=== PATIENT | female | born 1945 | race Caucasian/White ===

== ENCOUNTER → 2016-10-17 | Outpatient (CLI) | payer OTHER, MEDICARE ==
[~2016-10-17] MED LIST: CETI10TA84 PO; CLC100 PO; CYM/30 PO; DICL1GEL28 TOP; HYDR-5688 PO; MULT-884 PO; NXM/40 PO; PRM625 PO
== END | disposition home or self-care (01) ==
LOC: C.LAB 15:10
PROVIDERS: ATTEND Family Medicine
DX: Z00.00 Encounter for general adult medical examination without abnormal findings (principal); Z11.59 Encounter for screening for other viral diseases; Z13.220 Encounter for screening for lipoid disorders

== ENCOUNTER → 2016-10-17 | Outpatient (CLI) | payer OTHER, MEDICARE ==
--- NOTE | 2016-10-20 12:36 | MAMMOGRAPHY REPORT ---
BILATERAL DIGITAL SCREENING MAMMOGRAM WITH CAD: 10/17/2016 CLINICAL HISTORY: Routine screening. TECHNIQUE: Current study was also evaluated with a Computer Aided Detection (CAD) system. Bilateral CC and MLO views were obtained. COMPARISON: Comparison is made to exams dated: 09/06/2014 mammogram, 08/27/2013 mammogram - [facility], 08/12/2012 mammogram - [facility], 01/03/2008, and 12/30/2006. BREAST COMPOSITION: There are scattered areas of fibroglandular density in both breasts. FINDINGS: There is a new possible 6 mm mass in the right central breast, for which spot compression tomosynthesis views and possible breast ultrasound are recommended for further evaluation. This may represent a cyst. The remainder of both breasts are stable compared to prior exams, without suspicious masses, calcific ations, or areas of architectural distortion noted. A linear scar marker denotes a scar on the right anterior breast. Small circumscribed benign-appearing mass in the left medial breast is stable. As ymmetry within the left medial breast middle depth on the cc view is also stable. Circular markers m ark bilateral moles. IMPRESSION: ACR BI-RADS CATEGORY 0: INCOMPLETE EVALUATION: NEED ADDITIONAL IMAGING EVALUATION Possible right breast mass, for which additional imaging evaluation is recommended. The patient will be called to schedule an appointment. Approximately 10% of breast cancers are not detected with mammography. A negative mammographic report should not delay biopsy if a clinically suggestive mass is present. Donna Jaime M.D. /:10/17/2016 16:25:52 Metallography Teacher: Janey MENG(R)(M), [facility] letter sent: Addl Imaging 0 BI-RADS Code: ACR BI-RADS Category 0: Incomplete Evaluation: Need Additional Imaging Evaluation
== END | disposition home or self-care (01) ==
LOC: C.MAMM 14:01
PROVIDERS: ATTEND Family Medicine
DX: Z12.31 Encounter for screening mammogram for malignant neoplasm of breast (principal); Z00.00 Encounter for general adult medical examination without abnormal findings; Z11.59 Encounter for screening for other viral diseases; Z13.220 Encounter for screening for lipoid disorders

== ENCOUNTER → 2016-10-29 | Outpatient (CLI) | payer OTHER, MEDICARE ==
--- NOTE | 2016-10-29 15:37 | MAMMOGRAPHY REPORT ---
UNILATERAL RIGHT DIGITAL DIAGNOSTIC MAMMOGRAM TOMOSYNTHESIS AND TARGETED RIGHT ULTRASOUND: 10/29/2016 CLINICAL HISTORY: Callback from screening mammogram for right breast mass. The patient has a strong family history of breast cancer including her mother, sister, and other family members. TECHNIQUE: Breast tomosynthesis in addition to standard 2D mammography was performed. Spot compress ion right CC and MLO 2-D and tomosynthesis images were obtained. COMPARISON: Comparison is made to exams dated: 10/17/2016 mammogram - [facility], mammogram, 08/27/2013 mammogram - [facility], 08/12/2012 mammogram - [facility], 01/03/2008, and 12/30/2006. BREAST COMPOSITION: There are scattered areas of fibroglandular density in the right breast. FINDINGS: Spot compression views demonstrate an oval partially circumscribed and partially obscured 6 mm mass in the right central breast, as well as an adjacent oval circumscribed 3 mm mass best seen on the MLO view. A linear scar marker denotes a scar on the right breast. Targeted ultrasound was performed of the right central breast in the region of the mammographic jina s. In the right subareolar breast, there is an oval circumscribed anechoic mass with a thin internal septation, measuring 3 x 4 mm. An adjacent smaller oval anechoic circumscribed mass measuring 3 x 2 mm is seen. These correspond with the mammographic masses and are consistent with benign cysts. Al so noted is adjacent mild benign duct ectasia. IMPRESSION: ACR BI-RADS CATEGORY 2: BENIGN, TARGETED ULTRASOUND ACR BI-RADS CATEGORY 2: BENIGN Two adjacent benign cysts in the right subareolar breast on ultrasound, which correspond with the asia mographic masses. There is no mammographic or targeted sonographic evidence of malignancy. A 1 year screening mammogram is recommended. The patient has been verbally notified of the results. Approximately 10% of breast cancers are not detected with mammography. A negative mammographic report should not delay biopsy if a clinically suggestive mass is present. Donna Jaime M.D. /:10/29/2016 09:47:03 Corporate Vp Advertising & Online: [place] MENG(Nathaniel)([place]), [facility] letter sent: Normal 1/2 BI-RADS Code: ACR BI-RADS Category 2: Benign Ultrasound BI-RADS: ACR BI-RADS Category 2: Benign
== END | disposition home or self-care (01) ==
LOC: C.MAMM 09:20
PROVIDERS: ATTEND Family Medicine
DX: N63 Unspecified lump in breast (principal); N60.01 Solitary cyst of right breast

== ENCOUNTER → 2017-01-16 | Outpatient (CLI) | payer OTHER, MEDICARE ==
--- NOTE | 2017-01-16 17:22 | DIAGNOSTIC IMAGING REPORT ---
CHEST 2 VIEWS ROUTINE HISTORY: RENAL MASS PT WENT TO LAB FIRST COMPARISON: Chest 03/10/2016. FINDINGS: A few small scattered linear densities within the lungs suggestive of scarring or atelectasis. This is similar to the prior study. No new focal lung consolidations to suggest pneumonia. No evidence for pulmonary edema. No pleural effusions. No pneumothorax. The heart is stable in size. IMPRESSION: No significant change compared to the prior study. No acute process. Electronically signed by: Panfilo Parrish M.D. 01/16/2017 5:21 PM Dictated Date/Time: 01/16/2017 5:17 PM
[2017-01-16 18:15] LABS: ALT/SGPT 34 U/L (12-78); BLOOD UREA NITROGEN 11 mg/dl (7-18); BUN/CREATININE RATIO 12.4 (10-20); CALCIUM 9.5 mg/dl (8.5-10.1); CARBON DIOXIDE 27 mmol/L (21-32); CHLORIDE 108 mmol/L (98-107); CREATININE 0.89 mg/dl (0.60-1.20); GLUCOSE 123 mg/dl (70-99); POTASSIUM 4.5 mmol/L (3.5-5.1); SODIUM 141 mmol/L (136-145)
[2017-01-16 18:18] LABS: ALB/GLOB RATIO 1.1 (0.9-2); ALKALINE PHOSPHATASE 103 U/L (45-117); AST/SGOT 22 U/L (15-37)
== END | disposition home or self-care (01) ==
LOC: C.RAD 16:45
PROVIDERS: ATTEND Urology
DX: N28.89 Other specified disorders of kidney and ureter (principal)

== ENCOUNTER → 2017-12-02 | Outpatient (CLI) | payer OTHER, MEDICARE ==
--- NOTE | 2017-12-03 15:43 | MAMMOGRAPHY REPORT ---
BILATERAL DIGITAL SCREENING MAMMOGRAM TOMOSYNTHESIS WITH CAD: 12/02/2017 CLINICAL HISTORY: Routine screening. TECHNIQUE: The study was acquired using full field digital technology and interpreted from soft copy. Breast tomosynthesis in addition to standard 2D mammography was performed. Current study was also ev aluated with a Computer Aided Detection (CAD) system. COMPARISON: Comparison is made to exams dated: 10/29/2016 mammogram, 10/17/2016 mammogram - [facility], 09/06/2014 mammogram, 08/27/2013 mammogram - [facility], 08/12/2012 mammogram - [facility], and 01/03/2008. BREAST COMPOSITION: There are scattered areas of fibroglandular density in both breasts. FINDINGS: No suspicious masses, calcifications, or areas of architectural distortion are noted in either breast . There has been no significant interval change compared to prior exams. IMPRESSION: ACR BI-RADS CATEGORY 1: NEGATIVE There is no mammographic evidence of malignancy. A 1 year screening mammogram is recommended.( 019) The patient will receive written notification of the results. Some breast cancers are not detected with mammography. A negative mammographic report should not luis y biopsy if a clinically suggestive mass is present. Donna Jaime M.D. ah/:12/02/2017 15:57:47 Safety Leader: RT [place](Nathaniel)(M), [facility] letter sent: Normal 1/2 BI-RADS Code: ACR BI-RADS Category 1: Negative
== END | disposition home or self-care (01) ==
LOC: C.MAMM 15:01
PROVIDERS: ATTEND Family Medicine
DX: Z12.31 Encounter for screening mammogram for malignant neoplasm of breast (principal)

== ENCOUNTER 2019-02-08 15:58 | Inpatient (IN) ==
[2019-02-08] MEDS ORDERED: SODIUM CHLORIDE 0.9% 1000ML 1,000 ML IV ONE (16:46)
[2019-02-08] MEDS ORDERED: ACETAMINOPHEN 1,000 MG/100 ML VIAL IV STA (16:46)
[2019-02-08] MEDS ORDERED: ONDANSETRON INJ 2 MG/ML 2 ML VIAL IV STA (16:46)
--- NOTE | 2019-02-08 17:20 | XRay Report ---
SINGLE VIEW CHEST CLINICAL HISTORY: Generalized abdominal pain status post colonoscopy. FINDINGS: An AP, portable, upright chest radiograph is compared to study dated 01/31/2019 and correla bernice with chest CT dated 03/06/2014. The examination is degraded by portable technique and patient rot ation. The cardiomediastinal silhouette is unremarkable noting atherosclerotic calcification of the t horacic aorta. Chronic interstitial thickening is similar to previous. There is bibasilar scarring/at electasis. No airspace consolidation or large pleural effusion is identified. No pneumothorax is seen . The skeletal structures are osteopenic. The bony thorax is grossly intact. No evidence of intraperi toneal free air is seen below the diaphragm. IMPRESSION: No acute cardiopulmonary abnormality. Electronically signed by: José Manuel Sorensen M.D. 02/08/2019 5:18 PM
[2019-02-08 17:29] LABS: Basophils # (auto) 0.03 K/uL (0-0.2); Basophils % (auto) 0.2 %; Eosinophils # (auto) 0.03 K/uL (0-0.5); Eosinophils % (auto) 0.2 %; Hematocrit (blood only) 42.6 % (37-47); Hemoglobin 14.5 g/dL (12.0-16.0); Immature Granulocytes # (auto) 0.04 K/uL (0.00-0.02); Immature Granulocytes % (auto) 0.2 %; Lymphocytes # (auto) 0.69 K/uL (1.2-3.4); Lymphocytes % (auto) 4.2 %; Mean Corpuscular Hemoglobin 30.3 pg (25-34); Mean Corpuscular Volume 89.1 fL (80-100); Mean Platelet Volume 9.9 fL (7.4-10.4); Monocytes # (auto) 0.79 K/uL (0.11-0.59); Monocytes % (auto) 4.8 %; Neutrophils # (auto) 14.72 K/uL (1.4-6.5); Neutrophils % (auto) 90.4 %; Platelet Count 273 K/uL (130-400); RDW Coefficient of Variation 13.7 % (11.5-14.5); Red Blood Count 4.78 M/uL (4.2-5.4)
[2019-02-08 17:40] LABS: Partial Thromboplastin Ratio 0.8; Partial Thromboplastin Time 22.2 Seconds (21.0-31.0); Prothrombin Time 10.3 Seconds (9.0-12.0)
[2019-02-08 17:42] LABS: Alanine Aminotransferase 27 U/L (12-78); Aspartate Aminotransferase 17 U/L (15-37); BUN Creatinine Ratio 13.9 (10-20); Blood Urea Nitrogen 16 mg/dl (7-18); Calcium 9.2 mg/dl (8.5-10.1); Carbon Dioxide 24 mmol/L (21-32); Chloride 109 mmol/L (98-107); Est GFR (African American) 53.9; Est GFR (Non-African American) 46.5; Glucose 163 mg/dl (70-99); Lipase 108 U/L (73-393); Potassium 4.1 mmol/L (3.5-5.1); Sodium 141 mmol/L (136-145)
[2019-02-08 17:45] LABS: Albumin Globulin Ratio 1.1 (0.9-2); Alkaline Phosphatase 127 U/L (45-117); Bilirubin,Total 0.4 mg/dl (0.2-1); Globulin 3.7 gm/dl (2.5-4.0); Total Protein 7.7 gm/dl (6.4-8.2)
[2019-02-08] MEDS ORDERED: IOVERSOL 100ml IV PRN (18:10)
--- NOTE | 2019-02-08 18:39 | CT Scan Report ---
CT SCAN OF THE ABDOMEN AND PELVIS WITH IV CONTRAST CLINICAL HISTORY: Generalized abdominal pain status post colonoscopy today. COMPARISON STUDY: Abdominal CT dated 03/26/2015. Abdominal MRI dated 01/06/2018. TECHNIQUE: Following the IV administration of 95 cc of Optiray 320, CT scan of the abdomen and pelvi s is performed from the lung bases to the proximal femora. Images are reviewed in the axial, sagittal , and coronal planes. IV contrast was administered without complication. A dose lowering technique wa s utilized adhering to the principles of ALARA. CT DOSE: 563.19 mGy.cm FINDINGS: Lung bases: The heart is normal in size and without pericardial effusion. The lung bases are clear no ting bibasilar scarring/atelectasis. There is a moderate hiatal hernia. Liver: The contrast-enhanced liver is normal in size, contour, and attenuation. There is no intrahepa tic biliary ductal dilatation. The hepatic veins and portal veins are patent. There is a 1.9 cm low-a ttenuation lesion in the left lobe seen on image #94. This was previously shown to represent a ameena ioma by MRI. Gallbladder: There are calcified gallstones, with no CT evidence of acute cholecystitis. Spleen: Normal in size and attenuation. Pancreas: Unremarkable. Adrenal glands: Unremarkable. Kidneys: The contrast enhanced kidneys demonstrate mild cortical atrophy and are without hydronephros is. The kidneys enhance symmetrically. Cortical scarring is noted in the upper pole of the left kidne y. Abdominal vasculature: The abdominal aorta is normal in course and caliber noting advanced atheroscle rotic calcification. Bowel: There is moderate colonic diverticulosis. There is wall thickening with surrounding pericoloni c inflammation and fluid seen involving the distal descending colon. The appearance is typical for ac [place] diverticulitis. No organized fluid collection is seen to indicate abscess. No bowel obstruction i s identified. The appendix is well-visualized and normal. Peritoneum: There is no intraperitoneal free air or abdominal ascites. Surgical clips are noted in th e left retroperitoneal space. Lymphadenopathy: None. Pelvic viscera: The bladder is normal as visualized. The uterus is surgically absent. No adnexal lesi on is seen. Skeletal structures: The skeletal structures are osteopenic. Mild to moderate lumbosacral spondylosis is observed. No lytic or blastic lesions are seen. IMPRESSION: 1. Moderate colonic diverticulosis with evidence of acute diverticulitis of the distal descending col on. 2. No intraperitoneal free air is seen and there is no evidence of abscess. 3. Cholelithiasis. 4. Moderate hiatal hernia. 5. Additional findings as above. Electronically signed by: José Manuel Sorensen M.D. 02/08/2019 6:38 PM
[2019-02-08] MEDS ORDERED: AMPICILLIN/SULBACTAM SOD 3,000 MG in 0.9 % SODIUM CHLORIDE 100 ML IV STA (18:42)
--- NOTE | 2019-02-08 19:08 | Emergency Department Note ---
Entered by Gaby Griffin acting as a scribe for José Manuel Torres MD History of Present Illness General Chief complaint: Abdominal Pain Stated complaint: CRAMPS, CHILLS Time Seen by Provider: 02/08/19 16:43 Source: patient Mode of arrival: ambulatory Limitations: no limitations History of Present Illness Onset (ago): hour(s) 6 Location: abdomen Radiation: non-radiation Pain Consistency: + constant Maximum Pain Intensity: 8 Current Pain Intensity: 8 Quality: + other (cramping) Relieved By: + none Exacerbated By: + none Associated symptoms: + nausea/vomiting (+nausea, -vomiting) Treatments prior to arrival: none The patient is a 73 year old female, with past medical history of HTN, fibromyalgia, diverticulitis and GERD, who presents to the Emergency Room with complaints of abdominal pain. She notes early this morning when she was prepping for the colonoscopy, she experienced chills and nausea. She was able to get through the procedure and was told afterwards that Dr. Huynh removed 2 polyps but the scope otherwise went well. Around 1430 this afternoon, the patient experienced more chills and shaking. She called Dr. Huynh's office and was told to come here to the ED. She admits to a history of fibromyalgia and states her wrists, elbows and ankles always ache, which is not abnormal for her. She complains of abdominal cramping since she got home from the procedure this morning. She rates her discomfort as an 8/10 in severity. She did eat a hot cocoa, hamburger and fries from [employer] after the procedure. She has not taken any medication for her discomfort. Home Medications Home Medications Medication Instructions Recorded Confirmed Type cetirizine [Zyrtec] 10 mg PO DAILY PRN 06/01/18 02/08/19 History cyanocobalamin (vitamin B-12) 1,000 mcg PO DAILY 06/01/18 02/08/19 History [Vitamin B-12] diclofenac sodium 1 dose TOPICAL QID PRN 06/01/18 02/08/19 History esomeprazole magnesium [Nexium] 20 mg PO QAM 06/01/18 02/08/19 History celecoxib [Celebrex] 200 mg PO DAILY PRN 01/28/19 02/08/19 History cholecalciferol (vitamin D3) 2,000 unit PO QAM 02/08/19 02/08/19 History [Vitamin D3] niacin 100 mg PO DAILY 02/08/19 02/08/19 History Allergies Allergy/AdvReac Type Severity Reaction Status Date / Time codeine Allergy Intermediate "heart Verified 02/08/19 16:40 races, flush, passes out" losartan Allergy Intermediate Heart Verified 02/08/19 16:40 races, dizziness and weakness lower extremities Past Med/Surg History Medical History Cancer of kidney 2015-right kidney--sx to remove tumor Degenerative disc disease Depression Fibromyalgia GERD (gastroesophageal reflux disease) Hypertension no longer on medication - PCP aware and monitoring BP Melanoma of left upper arm removed in office Osteoarthritis Sciatic nerve pain Skin cancer left leg--removed in office left arm -- removed Surgical History History of colonoscopy History of esophagogastroduodenoscopy (EGD) 06/2018 [facility] History of kidney surgery 2014 removal of malignant kidney tumor History of repair of left rotator cuff History of right breast biopsy benign History of tooth extraction History of total abdominal hysterectomy and bilateral salpingo-oophorectomy Status post Mohs surgery Status post biopsy of kidney malignant Family History Sister Family history of diabetes mellitus Breast cancer Hypertension Mother Family hx of colon cancer Colorectal cancer Breast cancer Hypertension Uncle Prostate cancer Father Colorectal cancer Other No family history of adverse response to anesthesia Social History Preferred Language: Kyr[place]z Communication Ability: Effective [employer] Required: No Beliefs That Will Affect Care: None Current Living Situation: Alone Feels Safe at Home: Yes Smoking Status: Never smoker Second Hand Exposure: Yes (father smoked/brother smokes) ; Hx Alcohol Use: Yes Alcohol type: other Hx Substance Use: No Review of Systems See HPI for pertinent positives & negatives. and A total of 10 systems reviewed and were otherwise negative Physical Exam Vital Signs Vital Signs - 24 hr 02/08/19 16:06 02/08/19 17:14 02/08/19 17:18 Temperature 37.0 C Temperature Source Oral Sepsis Recent Fever Within 48 Hours No Sepsis Action Taken by Nursing No Action Required Pulse Rate 120 H 116 H Pulse Rate [Right Finger] 115 H Pulse Rate from SpO2 Sensor 116 H Respiratory Rate 20 29 H Respiratory Effort / Characteristics Non-Labored Respiratory Depth Normal Blood Pressure 163/59 H 169/78 H Blood Pressure [Left Arm] 169/78 H Blood Pressure Mean 93 108 Blood Pressure Mean [Left Arm] 108 Blood Pressure Position [Left Arm] Lying Pulse Oximetry 97 94 92 Oxygen Delivery Method Room Air Room Air 02/08/19 17:25 02/08/19 17:30 02/08/19 18:00 Temperature Temperature Source Sepsis Recent Fever Within 48 Hours Sepsis Action Taken by Nursing Pulse Rate 117 H 119 H 117 H Pulse Rate [Right Finger] Pulse Rate from SpO2 Sensor 117 H 119 H 118 H Respiratory Rate 29 H 31 H 24 Respiratory Effort / Characteristics Respiratory Depth Blood Pressure Blood Pressure [Left Arm] Blood Pressure Mean Blood Pressure Mean [Left Arm] Blood Pressure Position [Left Arm] Pulse Oximetry 92 92 89 L Oxygen Delivery Method Room Air GENERAL: Patient is in mild distress. HEENT: No acute trauma, normocephalic atraumatic, mucous membranes moist, no nasal congestion, no scleral icterus. NECK: No stridor, no adenopathy, no meningismus, trachea is midline. LUNGS: Clear to auscultation bilaterally, no wheeze, no rhonchi, breath sounds equal. HEART: Tachycardic with a regular rhythm, no murmurs. ABDOMEN: Soft, moderately tender along entire left side, bowel sounds positive, no hernias, no peritonitis. EXTREMITIES: No cyanosis or edema, full range of motion of all the joints without pain or difficulty, no signs for acute trauma. NEUROLOGIC: Oriented x 3, no acute motor or sensory deficits, no focal weakness. SKIN: No rash, no jaundice, no diaphoresis. Course 1642: The patient was evaluated in room C1. A complete history and physical were performed. 1843: I reevaluated the patient. I discussed her results and my recommendation she remain in the hospital for further evaluation and management and she verbalized complete understanding and agreement. 1845: I discussed the patients case with [facility]. He recommends she remain in the hospital for further evaluation and management. 1919: I discussed the patients case with Sherry Amezquita Hospitalist. The patient will be further evaluated. Consultations Consultation #1: I discussed the patients case with [facility]ry [facility]. He recommends she remain in the hospital for further evaluation and management. Time: 18:46 Consultation #2: [id number]: I discussed the patients case with Dr. Dorsey, Sherry Longo Hospitalist. The patient will be further evaluated. Time: 19:20 Administered Medications Ioversol (Optiray 320 100ml) 95 ml IV ONCE PRN PRN Reason: Interaction Checking Stop: 02/12/19 18:09 Last Admin: 02/08/19 18:10 Dose: 95 ml Documented by: [id number] Discontinued Medications Acetaminophen (Ofirmev) 1,000 mg in 100 mls @ 400 mls/hr IV NOW STA Stop: 02/08/19 17:00 Last Infusion: 02/08/19 18:04 Dose: 0 mls/hr Documented by: [id number] Admin: 02/08/19 17:45 Dose: 400 mls/hr Documented by: [id number] Sodium Chloride (Nss 1000ml) 1,000 mls @ 999 mls/hr IV .Q1H1M ONE Stop: 02/08/19 17:46 Last Infusion: 02/08/19 18:59 Dose: 0 mls/hr Documented by: [id number] Admin: 02/08/19 17:45 Dose: 999 mls/hr Documented by: [id number] Ampicillin Sodium/Sulbactam Sodium 3,000 mg/ Sodium Chloride 108 mls @ 200 mls/hr IV NOW STA; Protocol Stop: 02/08/19 19:14 Last Infusion: 02/08/19 20:09 Dose: 0 mls/hr Documented by: [id number] Admin: 02/08/19 19:08 Dose: 200 mls/hr Documented by: [id number] Ondansetron HCl (Zofran) 4 mg IV NOW STA Stop: 02/08/19 16:47 Last Admin: 02/08/19 17:45 Dose: 4 mg Documented by: [id number] Medical Decision Making Differential Diagnosis The differential diagnoses considered include bowel rupture, diverticulitis, free intra-abdominal air, anesthesia reaction, dehydration, electrolyte imbalance, UTI, infection. Medical Records Attestation: I reviewed the patient's medical records. Home Medications Current Medication List: was personally reviewed by me Laboratory Data Attestation: I reviewed the patient's lab results. Result diagrams: 02/08/19 17:11 02/08/19 17:11 Lab Results 02/08/19 02/08/19 02/08/19 Range/Units 17:11 17:11 17:11 WBC 16.30 H (4.8-10.8) K/uL RBC 4.78 (4.2-5.4) M/uL Hgb 14.5 (12.0-16.0) g/dL Hct 42.6 (37-47) % MCV 89.1 (80-100) fL MCH 30.3 (25-34) pg MCHC 34.0 (32-36) g/dL RDW Std Deviation 45.0 (36.4-46.3) fL RDW Coeff of Nadine 13.7 (11.5-14.5) % Plt Count 273 (130-400) K/uL MPV 9.9 (7.4-10.4) fL Immature Gran % (Auto) 0.2 % Neut % (Auto) 90.4 % Lymph % (Auto) 4.2 % [place] % (Auto) 4.8 % Eos % (Auto) 0.2 % Baso % (Auto) 0.2 % Immature Gran # (Auto) 0.04 H (0.00-0.02) K/uL Neut # (Auto) 14.72 H (1.4-6.5) K/uL Lymph # (Auto) 0.69 L (1.2-3.4) K/uL [place] # (Auto) 0.79 H (0.11-0.59) K/uL Eos # (Auto) 0.03 (0-0.5) K/uL Baso # (Auto) 0.03 (0-0.2) K/uL PT 10.3 (9.0-12.0) Seconds INR 1.0 (0.9-1.1) APTT 22.2 (21.0-31.0) Seconds PTT Ratio 0.8 Sodium 141 (136-145) mmol/L Potassium 4.1 (3.5-5.1) mmol/L Chloride 109 H (98-107) mmol/L Carbon Dioxide 24 (21-32) mmol/L Anion Gap 8.0 (3-11) BUN 16 (7-18) mg/dl Creatinine 1.17 (0.6-1.2) mg/dl Est Cr Clr Drug Dosing Not Reportable Est GFR ( Amer) 53.9 Est GFR (Non-Af Amer) 46.5 BUN/Creatinine Ratio 13.9 (10-20) Glucose 163 H (70-99) mg/dl Calcium 9.2 (8.5-10.1) mg/dl Total Bilirubin 0.4 (0.2-1) mg/dl AST 17 (15-37) U/L ALT 27 (12-78) U/L Alkaline Phosphatase 127 H (45-117) U/L Total Protein 7.7 (6.4-8.2) gm/dl Albumin 4.0 (3.4-5.0) gm/dl Globulin 3.7 (2.5-4.0) gm/dl Albumin/Globulin Ratio 1.1 (0.9-2) Lipase 108 (73-393) U/L Imaging Data Radiologist's Impression: Radiology results as stated below per my review and the radiologist's interpretation: SINGLE VIEW CHEST CLINICAL HISTORY: Generalized abdominal pain status post colonoscopy. FINDINGS: An AP, portable, upright chest radiograph is compared to study dated 01/31/2019 and correlated with chest CT dated 03/06/2014. The examination is degraded by portable technique and patient rotation. The cardiomediastinal silhouette is unremarkable noting atherosclerotic calcification of the thoracic aorta. Chronic interstitial thickening is similar to previous. There is bibasilar scarring/atelectasis. No airspace consolidation or large pleural effusion is identified. No pneumothorax is seen. The skeletal structures are osteopenic. The bony thorax is grossly intact. No evidence of intraperitoneal free air is seen below the diaphragm. IMPRESSION: No acute cardiopulmonary abnormality. Electronically signed by: José Manuel Sorensen M.D. 02/08/2019 5:[address] SCAN OF THE ABDOMEN AND PELVIS WITH IV CONTRAST CLINICAL HISTORY: Generalized abdominal pain status post colonoscopy today. COMPARISON STUDY: Abdominal CT dated 03/26/2015. Abdominal MRI dated 01/06/2018. TECHNIQUE: Following the IV administration of 95 cc of Optiray 320, CT scan of the abdomen and pelvis is performed from the lung bases to the proximal femora. Images are reviewed in the axial, sagittal, and coronal planes. IV contrast was administered without complication. A dose lowering technique was utilized adhering to the principles of ALARA. CT DOSE: 563.19 mGy.cm FINDINGS: Lung bases: The heart is normal in size and without pericardial effusion. The lung bases are clear noting bibasilar scarring/atelectasis. There is a moderate hiatal hernia. Liver: The contrast-enhanced liver is normal in size, contour, and attenuation. There is no intrahepatic biliary ductal dilatation. The hepatic veins and portal veins are patent. There is a 1.9 cm low-attenuation lesion in the left lobe seen on image #94. This was previously shown to represent a hemangioma by MRI. Gallbladder: There are calcified gallstones, with no CT evidence of acute cholecystitis. Spleen: Normal in size and attenuation. Pancreas: Unremarkable. Adrenal glands: Unremarkable. Kidneys: The contrast enhanced kidneys demonstrate mild cortical atrophy and are without hydronephrosis. The kidneys enhance symmetrically. Cortical scarring is noted in the upper pole of the left kidney. Abdominal vasculature: The abdominal aorta is normal in course and caliber noting advanced atherosclerotic calcification. Bowel: There is moderate colonic diverticulosis. There is wall thickening with surrounding pericolonic inflammation and fluid seen involving the distal descending colon. The appearance is typical for acute diverticulitis. No organized fluid collection is seen to indicate abscess. No bowel obstruction is identified. The appendix is well-visualized and normal. Peritoneum: There is no intraperitoneal free air or abdominal ascites. Surgical clips are noted in the left retroperitoneal space. Lymphadenopathy: None. Pelvic viscera: The bladder is normal as visualized. The uterus is surgically absent. No adnexal lesion is seen. Skeletal structures: The skeletal structures are osteopenic. Mild to moderate lumbosacral spondylosis is observed. No lytic or blastic lesions are seen. IMPRESSION: 1. Moderate colonic diverticulosis with evidence of acute diverticulitis of the distal descending colon. 2. No intraperitoneal free air is seen and there is no evidence of abscess. 3. Cholelithiasis. 4. Moderate hiatal hernia. 5. Additional findings as above. Electronically signed by: José Manuel Sorensen M.D. 02/08/2019 6:38 PM ECG Data Attestation: I personally reviewed and interpreted this ECG as follows: Indication: abdominal pain Rate (beats per minute): 116 Rhythm: sinus tachycardia Findings: + other (Possible inferior infarct, QT is 448) and + nonspecific-ST abn; no ectopy Comparison ECG Date: from (05/31/2014) Change: the following changes noted (rate has increased from previous EKG) Blood Pressure Blood Pressure Findings: Elevated blood pressure Blood Pressure Disposition: further management by hospitalist MDM Narrative There is a moderate leukocytosis at 16,000, this certainly could be consistent with infection. No worrisome anemia. No coagulopathy. No significant electrolyte abnormality or kidney failure. No worrisome liver enzyme elevation. Lipase was normal. Chest film did not show free air or pneumonia. Abdominal and pelvis CT shows diverticulitis, there was no bowel rupture, no abscess. On exam, the patient was tachycardic. She was tender across the left side of the a bdomen. The patient received IV saline, she was given IV Tylenol and IV Zofran. She was given a dose of IV Unasyn. Patient has acute diverticulitis, I think this explains her pain, her chills, even her tachycardia. I did speak with the patient's GI doctor. The patient will be hospitalized for IV antibiotic therapy and further care. She was not felt safe for discharge this evening. I spoke to the patient and case management. The on-call hospitalist was consulted. Impression & Plan Diverticulitis, Left sided abdominal pain, Leukocytosis, Tachycardia, Status post colonoscopy Discharge Plan Visit Data Chief Complaint: Abdominal Pain Stated Complaint: CRAMPS, CHILLS ED Provider: José Manuel Torres Discharge Problem: Diverticulitis, Left sided abdominal pain, Leukocytosis, Tachycardia, Status post colonoscopy Patient Disposition: Being Evaluated by Hospitalist Forms Stand Alone Forms: Call Back Authorization, [facility] Prescriptions Prescriptions: No Action cetirizine [Zyrtec] 10 mg Tablet 10 mg PO DAILY PRN (Reason: Allergy Symptoms) RF: 0 cyanocobalamin (vitamin B-12) [Vitamin B-12] 1,000 mcg Tablet 1,000 mcg PO DAILY RF: 0 esomeprazole magnesium [Nexium] 20 mg Capsule,Delayed Release(Dr/Ec) 20 mg PO QAM RF: 0 diclofenac sodium 1 % Gel 1 dose TOPICAL QID PRN (Reason: Pain) RF: 0 cholecalciferol (vitamin D3) [Vitamin D3] 2,000 unit Capsule 2,000 unit PO QAM RF: 0 niacin 100 mg Tablet 100 mg PO DAILY RF: 0 celecoxib [Celebrex] 200 mg Capsule 200 mg PO DAILY PRN (Reason: Pain) RF: 0 Referrals Referrals: Nela Zhang MD [Primary Care Provider] - The scribe's documentation has been prepared under my direction and personally reviewed by me in its entirety. I confirm that the note above accurately reflects all work, treatment, procedures, and medical decision making performed by me.
--- NOTE | 2019-02-08 20:30 | History & Physical Report ---
Date of Service February 08, 2019 Assessment & Plan (1) Diverticulitis: Patient with screening colonoscopy performed today which revealed diverticulosis, polyps x 2 and non-bleeding hemorrhoids. Presents to the ER with diverticulitis. She is afebrile, tachycardic with leukocytosis WBC=16.3. Initially tachypneic with RR of 31, breathing comfortably with normal rate during my encounter. She is non-toxic in appearance but is quite tender in the LLQ with voluntary guarding. CT with no perforation, abscess, obstruction or collection. -Admit to medical floor - Diverticulitis with sepsis -IVF with NSS at 80mL/hr x 2 liters -Zosyn 3.375gm IV q 8 hours -Serial abdominal exam -Tylenol PRN pain -Morphine 1mg IV q 4 hours PRN Present on Admission?: Yes (2) Hypertension: Blood pressure presently elevated, most likely secondary to stress/anxiety/pain. Patient monitors her BP at home, typically runs 130-140's. She is presently not taking any anti-hypertensive agents -Continue to monitor -Encourage lifestyle modification for BP management Present on Admission?: Yes (3) GERD (gastroesophageal reflux disease): Chronic. Stable. Patient states symptoms are well controlled with daily Nexium -Continue Nexium Present on Admission?: Yes (4) Fibromyalgia: Chronic. Patient reports that her symptoms are progressively worsening. She follows with Dr. Maldonado of Rheumatology. She is presently managing her pain with Celebrex and topical Diclofenac. She is reluctant to initiate further treatment, such as Lyrica, due to concern for side effects. -Continue Celebrex 200mg po daily -Continue Diclofenac topical PRN Present on Admission?: Yes (5) Renal mass: Patient with RCC s/p right partial nephrectomy performed in 2014. She follows with Dr. Flynn and is scheduled to see him next Thursday. No concerns at this time. F/E/N - NSS at 80mL/hr x 2 liters, monitor electrolytes and replete as needed, NPO for now until symptoms improve Ppx - SCDs Code - Full per discussion with patient Dispo - Admit to medical floor Present on Admission?: Yes History of Present Illness Chief Complaint: diverticulitis Primary Care Provider: Nela Zhang MD Aracely Sandoval is a 73yo C female with history of HTN, GERD, Fibromyalgia, Depression and renal cell carcinoma s/p partial nephrectomy in 2014. She had a routine screening colonoscopy performed today with Dr. Huynh. She reports that she completed the first bottle of prep yesterday without difficulty. As she was drinking her prep this AM she felt shaky and not quite right. She had the procedure performed with no complications. Colonoscopy revealed two 6 - 8 mm polyps in the sigmoid colon and in the cecum which were removed with a hot snare. Also revealed diverticulosis in the entire examined colon and non- bleeding internal hemorrhoids. She was sent home in stable condition, ate some lunch without difficulty. When she got home she took a nap and woke up with severe discomfort in her left lower quadrant. She also felt weak, chilled with sweats and nauseated. Pain was cramping in nature, 10/10 in severity[address] She contactacted Dr[address] Huynh's office and was directed to the ER. In the ER she was found to be afebrile, tachycardic and hypertensive. Pain improved with Acetaminophen. Presently 4/10 in severity in LLQ, worse with movement. No additional complaints at this time. Specifically, patient denies fevers, chest pain, palpitations, SOB, cough, wheeze, nausea, diarrhea, constipation, dysuria, rash. ER Course: Tylenol, Amp/Sulbactam, Zofran, NSS Allergies Allergy/AdvReac Type Severity Reaction Status Date / Time codeine Allergy Intermediate "heart Verified 02/08/19 16:40 races, flush, passes out" losartan Allergy Intermediate Heart Verified 02/08/19 16:40 races, dizziness and weakness lower extremities Home Medications Home Medications Medication Instructions Recorded Confirmed Type cetirizine [Zyrtec] 10 mg PO DAILY PRN 06/01/18 02/08/19 History cyanocobalamin (vitamin B-12) 1,000 mcg PO DAILY 06/01/18 02/08/19 History [Vitamin B-12] diclofenac sodium 1 dose TOPICAL QID PRN 06/01/18 02/08/19 History esomeprazole magnesium [Nexium] 20 mg PO QAM 06/01/18 02/08/19 History celecoxib [Celebrex] 200 mg PO DAILY PRN 01/28/19 02/08/19 History cholecalciferol (vitamin D3) 2,000 unit PO QAM 02/08/19 02/08/19 History [Vitamin D3] niacin 100 mg PO DAILY 02/08/19 02/08/19 History Past Med/Surg History Medical History Cancer of kidney 2015-right kidney--sx to remove tumor Degenerative disc disease Depression Fibromyalgia GERD (gastroesophageal reflux disease) Hypertension no longer on medication - PCP aware and monitoring BP Melanoma of left upper arm removed in office Osteoarthritis Sciatic nerve pain Skin cancer left leg--removed in office left arm -- removed Surgical History History of colonoscopy History of esophagogastroduodenoscopy (EGD) 06/2018 [facility] History of kidney surgery 2014 removal of malignant kidney tumor History of repair of left rotator cuff History of right breast biopsy benign History of tooth extraction History of total abdominal hysterectomy and bilateral salpingo-oophorectomy Status post Mohs surgery Status post biopsy of kidney malignant Family History Sister Family history of diabetes mellitus Breast cancer Hypertension Mother Family hx of colon cancer Colorectal cancer Breast cancer Hypertension Uncle Prostate cancer Father Colorectal cancer Other No family history of adverse response to anesthesia Social History Preferred Language: Czech Communication Ability: Effective Due Diligence Coordinator Required: No Beliefs That Will Affect Care: None Current Living Situation: Alone Feels Safe at Home: Yes Smoking Status: Never smoker Second Hand Exposure: Yes (father smoked/brother smokes) ; Hx Alcohol Use: Yes Alcohol type: other Hx Substance Use: No Review of Systems Review of Systems: All systems reviewed & are unremarkable except as noted in HPI & below Physical Exam Physical Exam: General: patient resting comfortably, NAD, non-toxic in appearance, AA&O x 4 Skin: warm, dry, intact, no rashes or lesions HEENT: NC/AT, PERRL, EOMI, anicteric sclera, conjunctiva without injection, external ear normal to inspection and nontender, nares patent, moist mucus membranes, dentition intact, no oropharyngeal lesions, neck supple, trachea midline, no LAD, no thyromegaly, no JVD Heart: +S1/S2, regular, tachycardic at 117 bpm, no m/r/g Lungs: equal air entry bilaterally, no rales/rhonchi/wheezes Abd: +BS, soft, ND, tender with palpation of LLQ with voluntary guarding, no masses/organomegaly/ascites Ext: warm, 2+ pulses in UE/LE bilaterally, no clubbing/cyanosis or edema Neuro: nonfocal, patient AA&O x 4, speech intact, no facial droop, moving all extremities on command with equal strength 5/5, ambulating without difficulty Results & Data Vital Signs (Past 12 Hours) Vital Signs Temp Pulse Pulse Resp BP BP Pulse Ox 02/08/19 18:00 117 H 24 89 L 02/08/19 17:30 119 H 31 H 92 02/08/19 17:25 117 H 29 H 92 02/08/19 17:18 116 H 29 H 169/78 H 92 02/08/19 17:14 115 H 169/78 H 94 02/08/19 16:06 37.0 C 120 H 20 163/59 H 97 Laboratory Results Lab Results 02/08/19 02/08/19 02/08/19 Range/Units 17:11 17:11 17:11 WBC 16.30 H (4.8-10.8) K/uL RBC 4.78 (4.2-5.4) M/uL Hgb 14.5 (12.0-16.0) g/dL Hct 42.6 (37-47) % MCV 89.1 (80-100) fL MCH 30.3 (25-34) pg MCHC 34.0 (32-36) g/dL RDW Std Deviation 45.0 (36.4-46.3) fL RDW Coeff of Nadine 13.7 (11.5-14.5) % Plt Count 273 (130-400) K/uL MPV 9.9 (7.4-10.4) fL Immature Gran % (Auto) 0.2 % Neut % (Auto) 90.4 % Lymph % (Auto) 4.2 % [place] % (Auto) 4.8 % Eos % (Auto) 0.2 % Baso % (Auto) 0.2 % Immature Gran # (Auto) 0.04 H (0.00-0.02) K/uL Neut # (Auto) 14.72 H (1.4-6.5) K/uL Lymph # (Auto) 0.69 L (1.2-3.4) K/uL [place] # (Auto) 0.79 H (0.11-0.59) K/uL Eos # (Auto) 0.03 (0-0.5) K/uL Baso # (Auto) 0.03 (0-0.2) K/uL PT 10.3 (9.0-12.0) Seconds INR 1.0 (0.9-1.1) APTT 22.2 (21.0-31.0) Seconds PTT Ratio 0.8 Sodium 141 (136-145) mmol/L Potassium 4.1 (3.5-5.1) mmol/L Chloride 109 H (98-107) mmol/L Carbon Dioxide 24 (21-32) mmol/L Anion Gap 8.0 (3-11) BUN 16 (7-18) mg/dl Creatinine 1.17 (0.6-1.2) mg/dl Est Cr Clr Drug Dosing Not Reportable Est GFR ( Amer) 53.9 Est GFR (Non-Af Amer) 46.5 BUN/Creatinine Ratio 13.9 (10-20) Glucose 163 H (70-99) mg/dl Calcium 9.2 (8.5-10.1) mg/dl Total Bilirubin 0.4 (0.2-1) mg/dl AST 17 (15-37) U/L ALT 27 (12-78) U/L Alkaline Phosphatase 127 H (45-117) U/L Total Protein 7.7 (6.4-8.2) gm/dl Albumin 4.0 (3.4-5.0) gm/dl Globulin 3.7 (2.5-4.0) gm/dl Albumin/Globulin Ratio 1.1 (0.9-2) Lipase 108 (73-393) U/L Diagnostic Findings SINGLE VIEW CHEST CLINICAL HISTORY: Generalized abdominal pain status post colonoscopy. FINDINGS: An AP, portable, upright chest radiograph is compared to study dated 01/31/2019 and correlated with chest CT dated 03/06/2014. The examination is degraded by portable technique and patient rotation. The cardiomediastinal silhouette is unremarkable noting atherosclerotic calcification of the thoracic aorta. Chronic interstitial thickening is similar to previous. There is bibasilar scarring/atelectasis. No airspace consolidation or large pleural effusion is identified. No pneumothorax is seen. The skeletal structures are osteopenic. The bony thorax is grossly intact. No evidence of intraperitoneal free air is seen below the diaphragm. IMPRESSION: No acute cardiopulmonary abnormality. Electronically signed by: José Manuel Sorensen M.D. 02/08/2019 5:18 PM Dictated: 02/08/191716 Transcribed: 02/08/191716 CT SCAN OF THE ABDOMEN AND PELVIS WITH IV CONTRAST CLINICAL HISTORY: Generalized abdominal pain status post colonoscopy today. COMPARISON STUDY: Abdominal CT dated 03/26/2015. Abdominal MRI dated 01/06/2018. TECHNIQUE: Following the IV administration of 95 cc of Optiray 320, CT scan of the abdomen and pelvis is performed from the lung bases to the proximal femora. Images are reviewed in the axial, sagittal, and coronal planes. IV contrast was administered without complication. A dose lowering technique was utilized adhering to the principles of ALARA. CT DOSE: 563.19 mGy.cm FINDINGS: Lung bases: The heart is normal in size and without pericardial effusion. The lung bases are clear noting bibasilar scarring/atelectasis. There is a moderate hiatal hernia. Liver: The contrast-enhanced liver is normal in size, contour, and attenuation. There is no intrahepatic biliary ductal dilatation. The hepatic veins and portal veins are patent. There is a 1.9 cm low-attenuation lesion in the left lobe seen on image #94. This was previously shown to represent a hemangioma by MRI. Gallbladder: There are calcified gallstones, with no CT evidence of acute cholecystitis. Spleen: Normal in size and attenuation. Pancreas: Unremarkable. Adrenal glands: Unremarkable. Kidneys: The contrast enhanced kidneys demonstrate mild cortical atrophy and are without hydronephrosis. The kidneys enhance symmetrically. Cortical scarring is noted in the upper pole of the left kidney. Abdominal vasculature: The abdominal aorta is normal in course and caliber noting advanced atherosclerotic calcification. Bowel: There is moderate colonic diverticulosis. There is wall thickening with surrounding pericolonic inflammation and fluid seen involving the distal descending colon. The appearance is typical for acute diverticulitis. No organized fluid collection is seen to indicate abscess. No bowel obstruction is identified. The appendix is well-visualized and normal. Peritoneum: There is no intraperitoneal free air or abdominal ascites. Surgical clips are noted in the left retroperitoneal space. Lymphadenopathy: None. Pelvic viscera: The bladder is normal as visualized. The uterus is surgically absent. No adnexal lesion is seen. Skeletal structures: The skeletal structures are osteopenic. Mild to moderate lumbosacral spondylosis is observed. No lytic or blastic lesions are seen. IMPRESSION: 1. Moderate colonic diverticulosis with evidence of acute diverticulitis of the distal descending colon. 2. No intraperitoneal free air is seen and there is no evidence of abscess. 3. Cholelithiasis. 4. Moderate hiatal hernia. 5. Additional findings as above. Electronically signed by: José Manuel Sorensen M.D. 02/08/2019 6:38 PM Dictated: 02/08/191830 Transcribed: 02/08/191830 ECG Additional Comments: The study reveals ST at 116 bpm, normal axis, AK=129, QRS=66, ROj=994, no acute ischemic changes Code Status & VTE Plan Code Status FULL VTE Prophylaxis Plan VTE Prophylaxis will be ordered: Yes PG Care Time/CCT Total # of Minutes Spent Total Time Spent with Patient: Total time spent is greater than 50% in coordination of care (as documented) at patient's floor/unit and/or counseling patient: (1) Hypertension Hypertension type: essential hypertension Qualified Code(s): I10 - Essential (primary) hypertension (2) GERD (gastroesophageal reflux disease) Esophagitis presence: esophagitis presence not specified Qualified Code(s): K21.9 - Gastro-esophageal reflux disease without esophagitis
[2019-02-08] MEDS ORDERED: DICLOFENAC SOD 1% GEL 100 GM TUBE EXT PRN (21:23)
[2019-02-08] MEDS ORDERED: MoRPHine SULFATE 2 MG/ML CARP IV PRN (21:23)
[2019-02-08] MEDS ORDERED: CeleBREX 200 MG CAP PO PRN (21:23)
[2019-02-08] MEDS ORDERED: ACETAMINOPHEN 325 MG TAB PO PRN (21:23)
[2019-02-08] MEDS ORDERED: PIPERACILL/TAZOBAC CONSULT ACTIVE PRN (21:23)
[2019-02-08] MEDS ORDERED: CETIRIZINE HCL 10 MG TABLET PO PRN (21:23)
[2019-02-08] MEDS ORDERED: PATIENT'S HEIGHT AND/OR WEIGHT NEEDED SCH (21:45)
[2019-02-08] MEDS ORDERED: PIPERACILLIN/TAZOBACTAM 3.375 GM in DEXTROSE 5% 100 ML IV ONE (22:00)
[2019-02-08 22:04] LABS: Magnesium 2.2 mg/dl (1.8-2.4); Phosphorus 2.3 mg/dl (2.5-4.9)
[2019-02-08] MEDS: SODIUM CHLORIDE 0.9% 1000ML 1,000 ML IV SCH (22:10)
[2019-02-09] MEDS: PIPERACILLIN/TAZOBACTAM 3.375 GM in DEXTROSE 5% 100 ML IV SCH ×3 (04:47→20:21)
[2019-02-09 05:32] LABS: Basophils # (auto) 0.04 K/uL (0-0.2); Basophils % (auto) 0.3 %; Eosinophils # (auto) 0.05 K/uL (0-0.5); Eosinophils % (auto) 0.4 %; Hematocrit (blood only) 36.6 % (37-47); Hemoglobin 12.1 g/dL (12.0-16.0); Immature Granulocytes # (auto) 0.03 K/uL (0.00-0.02); Immature Granulocytes % (auto) 0.2 %; Lymphocytes # (auto) 1.81 K/uL (1.2-3.4); Lymphocytes % (auto) 13.4 %; Mean Corpuscular Hemoglobin 29.7 pg (25-34); Mean Corpuscular Hgb Conc 33.1 g/dL (32-36); Mean Corpuscular Volume 89.7 fL (80-100); Mean Platelet Volume 9.6 fL (7.4-10.4); Monocytes # (auto) 1.18 K/uL (0.11-0.59); Monocytes % (auto) 8.7 %; Neutrophils # (auto) 10.43 K/uL (1.4-6.5); Platelet Count 232 K/uL (130-400); RDW Coefficient of Variation 13.8 % (11.5-14.5); RDW Standard Deviation 45.5 fL (36.4-46.3); Red Blood Count 4.08 M/uL (4.2-5.4); White Blood Count 13.54 K/uL (4.8-10.8)
[2019-02-09 06:26] LABS: Albumin Level 2.8 gm/dl (3.4-5.0); BUN Creatinine Ratio 14.4 (10-20); Bilirubin Direct 0.2 mg/dl (0-0.2); Bilirubin,Total 0.7 mg/dl (0.2-1); Calcium 8.2 mg/dl (8.5-10.1); Creatinine Clr Calc Pharmacy 51.6 ml/min; Est GFR (African American) 78.2; Est GFR (Non-African American) 67.5; Potassium 3.6 mmol/L (3.5-5.1)
[2019-02-09 06:30] LABS: Appearance Urine Clear (Clear); Bilirubin Urine Negative (Negative); Blood Urine Negative (Negative); Color Urine Yellow; Glucose Urine UA Negative (Negative); Ketones Urine Negative (Negative); Leukocyte Esterase Urine Negative (Negative); Nitrite Urine Negative (Negative); Protein Urine Negative (Negative); Specific Gravity Urine > 1.045 (1.000-1.030); Urobilinogen Urine Negative (Negative); pH Urine 5.5 (4.5-7.5)
[2019-02-09] MEDS: CYANOCOBALAMIN 500 MCG TABLET (VITAMIN B-12) PO SCH (07:40)
[2019-02-09] MEDS: CHOLECALCIFEROL 1,000 UNITS TAB PO SCH (07:41)
[2019-02-09] MEDS: PANTOprazole 40 MG TAB PO SCH (07:41)
[2019-02-09] MEDS: SODIUM CHLORIDE 0.9% 1000ML 1,000 ML IV SCH (09:30)
--- NOTE | 2019-02-09 13:14 | Hospitalist Progress Note ---
Date of Service February 09, 2019 Assessment & Plan (1) Diverticulitis: Patient with screening colonoscopy performed on the day of admission which revealed diverticulosis, polyps x 2 in the sigmoid colon and cecum and non- bleeding hemorrhoids. Presents to the ER with diverticulitis, left lower quadrant pain, evidence of diverticulitis on CT scan of the descending colon without microperforation or abscess. She is afebrile, tachycardic with leukocytosis WBC=16.3. Much improved with less pain today, tolerating clear liquids diet -Advance diet to full liquids -Continue IVF with NSS at 80mL/hr x 2 liters -Continue Zosyn 3.375gm IV q 8 hours -Tylenol PRN pain -Morphine 1mg IV q 4 hours PRN -We will likely discharge home tomorrow if can advance diet to low fiber and pain is improved (2) Hypertension: Blood pressures were elevated secondary to pain and are now much improved She is presently not taking any anti-hypertensive agents -Continue to monitor -Encourage lifestyle modification for BP management (3) GERD (gastroesophageal reflux disease): Chronic. Stable. Patient states symptoms are well controlled with daily Nexium -Continue Nexium (4) Fibromyalgia: Chronic. Patient reports that her symptoms are progressively worsening. She follows with Dr. Maldonado of Rheumatology. She is presently managing her pain with Celebrex and topical Diclofenac. She is reluctant to initiate further treatment, such as Lyrica, due to concern for side effects. -Continue Celebrex 200mg po daily -Continue Diclofenac topical PRN (5) Renal mass: Patient with RCC s/p right partial nephrectomy performed in 2014. She follows with Dr. Flynn and is scheduled to see him next Thursday. No concerns at this time. (6) Prolonged QT interval: QTC on admitting ECG read as greater than 600-does not seem to be that high but will repeat ECG now (7) DVT prophylaxis: Ppx - SCDs Code - Full per discussion with patient Dispo -continued stay and likely discharge home tomorrow if continues to improve Subjective Patient feeling much better. Pain in the left lower quadrant is much improved. She tolerated clear liquids diet without any issues. Denies nausea or vomiting, denies chest pain or shortness of breath, denies headache or lightheadedness. Review of Systems Review of Systems: All systems reviewed & are unremarkable except as noted in HPI & below Physical Exam Constitutional: WD/WN, vitals as above Eyes: + anicteric sclerae ENMT: external ear and nose normal, oropharynx normal Neck: trachea midline, no thyromegaly Respiratory: normal respiratory effort, lungs clear to auscultation Cardiovascular: RRR, no murmur, no edema Gastrointestinal (Abdomen): Inspection/Auscultation: abdomen normal to inspection and normal bowel sounds; abdomen not distended Percussion/Palpatio n: + abdomen tender (Mild in left lower and upper quadrant without guarding or rebound) and abdomen soft; no guarding, abdomen not rigid and no hernia Musculoskeletal: Extremities: extremities normal to inspection; no cyanosis and no clubbing Skin: no rashes, warm and dry Neurologic: moves all extremities and awake; no focal motor deficits Psychiatric: A+Ox3, euthymic affect Results & Data Vital Signs (Past 12 Hours) Vital Signs Temp Pulse Resp BP Pulse Ox 02/09/19 07:54 36.4 C L 74 16 137/79 93 Laboratory Results 02/09/19 02/09/19 02/09/19 Range/Units 05:42 05:15 05:15 WBC 13.54 H (4.8-10.8) K/uL RBC 4.08 L (4.2-5.4) M/uL Hgb 12.1 (12.0-16.0) g/dL Hct 36.6 L (37-47) % MCV 89.7 (80-100) fL MCH 29.7 (25-34) pg MCHC 33.1 (32-36) g/dL RDW Std Deviation 45.5 (36.4-46.3) fL RDW Coeff of Nadine 13.8 (11.5-14.5) % Plt Count 232 (130-400) K/uL MPV 9.6 (7.4-10.4) fL Immature Gran % (Auto) 0.2 % Neut % (Auto) 77.0 % Lymph % (Auto) 13.4 % [place] % (Auto) 8.7 % Eos % (Auto) 0.4 % Baso % (Auto) 0.3 % Immature Gran # (Auto) 0.03 H (0.00-0.02) K/uL Neut # (Auto) 10.43 H (1.4-6.5) K/uL Lymph # (Auto) 1.81 (1.2-3.4) K/uL [place] # (Auto) 1.18 H (0.11-0.59) K/uL Eos # (Auto) 0.05 (0-0.5) K/uL Baso # (Auto) 0.04 (0-0.2) K/uL PT (9.0-12.0) Seconds INR (0.9-1.1) APTT (21.0-31.0) Seconds PTT Ratio Sodium 142 (136-145) mmol/L Potassium 3.6 (3.5-5.1) mmol/L Chloride 112 H (98-107) mmol/L Carbon Dioxide 23 (21-32) mmol/L Anion Gap 6.0 (3-11) BUN 12 (7-18) mg/dl Creatinine 0.86 D (0.6-1.2) mg/dl Est Cr Clr Drug Dosing 51.6 Est GFR ( Amer) 78.2 Est GFR (Non-Af Amer) 67.5 BUN/Creatinine Ratio 14.4 (10-20) Glucose 104 H (70-99) mg/dl Calcium 8.2 L (8.5-10.1) mg/dl Phosphorus (2.5-4.9) mg/dl Magnesium (1.8-2.4) mg/dl Total Bilirubin 0.7 (0.2-1) mg/dl Direct Bilirubin 0.2 (0-0.2) mg/dl AST 15 (15-37) U/L ALT 23 (12-78) U/L Alkaline Phosphatase 96 (45-117) U/L Total Protein 6.0 L D (6.4-8.2) gm/dl Albumin 2.8 L (3.4-5.0) gm/dl Globulin (2.5-4.0) gm/dl Albumin/Globulin Ratio (0.9-2) Lipase (73-393) U/L Urine Color Yellow Urine Appearance Clear (Clear) Urine pH 5.5 (4.5-7.5) Ur Specific [place] > 1.045 H (1.000-1.030) Urine Protein Negative (Negative) Urine Glucose (UA) Negative (Negative) Urine Ketones Negative (Negative) Urine Blood Negative (Negative) Urine Nitrite Negative (Negative) Urine Bilirubin Negative (Negative) Urine Urobilinogen Negative (Negative) Ur Leukocyte Esterase Negative (Negative) 02/08/19 02/08/19 02/08/19 Range/Units 17:11 17:11 17:11 WBC (4.8-10.8) K/uL RBC (4.2-5.4) M/uL Hgb (12.0-16.0) g/dL Hct (37-47) % MCV (80-100) fL MCH (25-34) pg MCHC (32-36) g/dL RDW Std Deviation (36.4-46.3) fL RDW Coeff of Nadine (11.5-14.5) % Plt Count (130-400) K/uL MPV (7.4-10.4) fL Immature Gran % (Auto) % Neut % (Auto) % Lymph % (Auto) % [place] % (Auto) % Eos % (Auto) % Baso % (Auto) % Immature Gran # (Auto) (0.00-0.02) K/uL Neut # (Auto) (1.4-6.5) K/uL Lymph # (Auto) (1.2-3.4) K/uL [place] # (Auto) (0.11-0.59) K/uL Eos # (Auto) (0-0.5) K/uL Baso # (Auto) (0-0.2) K/uL PT 10.3 (9.0-12.0) Seconds INR 1.0 (0.9-1.1) APTT 22.2 (21.0-31.0) Seconds PTT Ratio 0.8 Sodium 141 (136-145) mmol/L Potassium 4.1 (3.5-5.1) mmol/L Chloride 109 H (98-107) mmol/L Carbon Dioxide 24 (21-32) mmol/L Anion Gap 8.0 (3-11) BUN 16 (7-18) mg/dl Creatinine 1.17 (0.6-1.2) mg/dl Est Cr Clr Drug Dosing Not Reportable Est GFR ( Amer) 53.9 Est GFR (Non-Af Amer) 46.5 BUN/Creatinine Ratio 13.9 (10-20) Glucose 163 H (70-99) mg/dl Calcium 9.2 (8.5-10.1) mg/dl Phosphorus 2.3 L (2.5-4.9) mg/dl Magnesium 2.2 (1.8-2.4) mg/dl Total Bilirubin 0.4 (0.2-1) mg/dl Direct Bilirubin (0-0.2) mg/dl AST 17 (15-37) U/L ALT 27 (12-78) U/L Alkaline Phosphatase 127 H (45-117) U/L Total Protein 7.7 (6.4-8.2) gm/dl Albumin 4.0 (3.4-5.0) gm/dl Globulin 3.7 (2.5-4.0) gm/dl Albumin/Globulin Ratio 1.1 (0.9-2) Lipase 108 (73-393) U/L Urine Color Urine Appearance (Clear) Urine pH (4.5-7.5) Ur Specific [place] (1.000-1.030) Urine Protein (Negative) Urine Glucose (UA) (Negative) Urine Ketones (Negative) Urine Blood (Negative) Urine Nitrite (Negative) Urine Bilirubin (Negative) Urine Urobilinogen (Negative) Ur Leukocyte Esterase (Negative) 02/08/19 Range/Units 17:11 WBC 16.30 H (4.8-10.8) K/uL RBC 4.78 (4.2-5.4) M/uL Hgb 14.5 (12.0-16.0) g/dL Hct 42.6 (37-47) % MCV 89.1 (80-100) fL MCH 30.3 (25-34) pg MCHC 34.0 (32-36) g/dL RDW Std Deviation 45.0 (36.4-46.3) fL RDW Coeff of Nadine 13.7 (11.5-14.5) % Plt Count 273 (130-400) K/uL MPV 9.9 (7.4-10.4) fL Immature Gran % (Auto) 0.2 % Neut % (Auto) 90.4 % Lymph % (Auto) 4.2 % [place] % (Auto) 4.8 % Eos % (Auto) 0.2 % Baso % (Auto) 0.2 % Immature Gran # (Auto) 0.04 H (0.00-0.02) K/uL Neut # (Auto) 14.72 H (1.4-6.5) K/uL Lymph # (Auto) 0.69 L (1.2-3.4) K/uL [place] # (Auto) 0.79 H (0.11-0.59) K/uL Eos # (Auto) 0.03 (0-0.5) K/uL Baso # (Auto) 0.03 (0-0.2) K/uL PT (9.0-12.0) Seconds INR (0.9-1.1) APTT (21.0-31.0) Seconds PTT Ratio Sodium (136-145) mmol/L Potassium (3.5-5.1) mmol/L Chloride (98-107) mmol/L Carbon Dioxide (21-32) mmol/L Anion Gap (3-11) BUN (7-18) mg/dl Creatinine (0.6-1.2) mg/dl Est Cr Clr Drug Dosing Est GFR ( Amer) Est GFR (Non-Af Amer) BUN/Creatinine Ratio (10-20) Glucose (70-99) mg/dl Calcium (8.5-10.1) mg/dl Phosphorus (2.5-4.9) mg/dl Magnesium (1.8-2.4) mg/dl Total Bilirubin (0.2-1) mg/dl Direct Bilirubin (0-0.2) mg/dl AST (15-37) U/L ALT (12-78) U/L Alkaline Phosphatase (45-117) U/L Total Protein (6.4-8.2) gm/dl Albumin (3.4-5.0) gm/dl Globulin (2.5-4.0) gm/dl Albumin/Globulin Ratio (0.9-2) Lipase (73-393) U/L Urine Color Urine Appearance (Clear) Urine pH (4.5-7.5) Ur Specific [place] (1.000-1.030) Urine Protein (Negative) Urine Glucose (UA) (Negative) Urine Ketones (Negative) Urine Blood (Negative) Urine Nitrite (Negative) Urine Bilirubin (Negative) Urine Urobilinogen (Negative) Ur Leukocyte Esterase (Negative) PG Care Time/CCT Total # of Minutes Spent Total Time Spent with Patient: Total time spent is greater than 50% in coordination of care (as documented) at patient's floor/unit and/or counseling patient: (1) Hypertension Hypertension type: essential hypertension Qualified Code(s): I10 - Essential (primary) hypertension (2) GERD (gastroesophageal reflux disease) Esophagitis presence: esophagitis presence not specified Qualified Code(s): K21.9 - Gastro-esophageal reflux disease without esophagitis
[2019-02-10] MEDS: PIPERACILLIN/TAZOBACTAM 3.375 GM in DEXTROSE 5% 100 ML IV SCH ×2 (03:33→13:27)
[2019-02-10 06:17] LABS: Basophils # (auto) 0.03 K/uL (0-0.2); Basophils % (auto) 0.4 %; Eosinophils # (auto) 0.31 K/uL (0-0.5); Eosinophils % (auto) 3.7 %; Hematocrit (blood only) 36.4 % (37-47); Hemoglobin 12.4 g/dL (12.0-16.0); Immature Granulocytes # (auto) 0.01 K/uL (0.00-0.02); Immature Granulocytes % (auto) 0.1 %; Lymphocytes # (auto) 1.73 K/uL (1.2-3.4); Lymphocytes % (auto) 20.4 %; Mean Corpuscular Hemoglobin 30.2 pg (25-34); Mean Corpuscular Hgb Conc 34.1 g/dL (32-36); Mean Corpuscular Volume 88.6 fL (80-100); Mean Platelet Volume 9.6 fL (7.4-10.4); Monocytes # (auto) 0.73 K/uL (0.11-0.59); Monocytes % (auto) 8.6 %; Neutrophils # (auto) 5.66 K/uL (1.4-6.5); Neutrophils % (auto) 66.8 %; Platelet Count 255 K/uL (130-400); RDW Coefficient of Variation 13.6 % (11.5-14.5); RDW Standard Deviation 44.5 fL (36.4-46.3); Red Blood Count 4.11 M/uL (4.2-5.4); White Blood Count 8.47 K/uL (4.8-10.8)
[2019-02-10 06:51] LABS: BUN Creatinine Ratio 8.8 (10-20); Creatinine Clr Calc Pharmacy 52.8 ml/min; Est GFR (African American) 80.5; Est GFR (Non-African American) 69.4; Potassium 3.7 mmol/L (3.5-5.1)
[2019-02-10 07:43] VITALS: BP 164/80; PULSE 75; TEMP 98.4; O2SAT 95
[2019-02-10] MEDS: PANTOprazole 40 MG TAB PO SCH (07:53)
[2019-02-10] MEDS: CHOLECALCIFEROL 1,000 UNITS TAB PO SCH (07:53)
[2019-02-10] MEDS: CYANOCOBALAMIN 500 MCG TABLET (VITAMIN B-12) PO SCH (07:53)
--- NOTE | 2019-02-10 13:22 | Discharge Summary ---
Date of Service February 10, 2019 Admission HPI Per Admitting Provider Aracely Sandoval is a 73yo C female with history of HTN, GERD, Fibromyalgia, Depression and renal cell carcinoma s/p partial nephrectomy in 2014. She had a routine screening colonoscopy performed today with Dr. Huynh. She reports that she completed the first bottle of prep yesterday without difficulty. As she was drinking her prep this AM she felt shaky and not quite right. She had the procedure performed with no complications. Colonoscopy revealed two 6 - 8 mm polyps in the sigmoid colon and in the cecum which were removed with a hot snare. Also revealed diverticulosis in the entire examined colon and non-b leeding internal hemorrhoids. She was sent home in stable condition, ate some lunch without difficulty. When she got home she took a nap and woke up with severe discomfort in her left lower quadrant. She also felt weak, chilled with sweats and nauseated. Pain was cramping in nature, 10/10 in severity. She contactacted Dr[address] Huynh's office and was directed to the ER. In the ER she was found to be afebrile, tachycardic and hypertensive. Pain improved with Acetaminophen. Presently 4/10 in severity in LLQ, worse with movement. No additional complaints at this time. Specifically, patient denies fevers, chest pain, palpitations, SOB, cough, wheeze, nausea, diarrhea, constipation, dysuria, rash. ER Course: Tylenol, Amp/Sulbactam, Zofran, NSS Principal Diagnosis Acute diverticulitis Discharge Exam Constitutional WD/WN, vitals as above Eyes + anicteric sclerae ENMT external ear and nose normal, oropharynx normal Neck trachea midline, no thyromegaly Respiratory normal respiratory effort, lungs clear to auscultation Cardiovascular RRR, no murmur, no edema Gastrointestinal (Abdomen) Inspection/Auscultation: abdomen normal to inspection and normal bowel sounds; abdomen not distended Percussion/Palpation: + abdomen tender (Mild in left lower and upper quadrant without guarding or rebound) and abdomen soft; no guarding, abdomen not rigid and no hernia Musculoskeletal Extremities: extremities normal to inspection; no cyanosis and no clubbing Skin no rashes, warm and dry Neurologic moves all extremities and awake; no focal motor deficits Psychiatric A+Ox3, euthymic affect Discharge Data Allergies Allergy/AdvReac Type Severity Reaction Status Date / Time codeine Allergy Intermediate "heart Verified 02/08/19 16:40 races, flush, passes out" losartan Allergy Intermediate Heart Verified 02/08/19 16:40 races, dizziness and weakness lower extremities Consultations 02/08/19 19:17 ED Decision to Admit Stat Ordered Studies 02/08/19 16:46 CT abd pelvis IV con only Stat Hospital Course (1) Diverticulitis: Acute diverticulitis, not a complication of colonoscopy. Patient with screening colonoscopy performed on the day of admission which revealed diverticulosis, polyps x 2 in the sigmoid colon and cecum and non- bleeding hemorrhoids. Presents to the ER with diverticulitis, left lower quadrant pain, evidence of diverticulitis on CT scan of the descending colon without microperforation or abscess. She is afebrile, tachycardic with leukocytosis WBC=16.3. Much improved with pain almost resolved completely, tolerating low fiber diet, leukocytosis resolved, afebrile Received IVFs and IV Zosyn -convert to po Augmentin x 8 more days for a total of 10 days of abx (will not give Cipro due to concerns for prolonged QT as below) -Tylenol PRN pain (2) Hypertension: Blood pressures were elevated secondary to pain and are now much improved She is presently not taking any anti-hypertensive agents -Continue to monitor -Encourage lifestyle modification for BP management (3) GERD (gastroesophageal reflux disease): Chronic. Stable. Patient states symptoms are well controlled with daily Nexium -Continue Nexium (4) Fibromyalgia: Chronic. Patient reports that her symptoms are progressively worsening. She follows with Dr. Maldonado of Rheumatology. She is presently managing her pain with Celebrex and topical Diclofenac. She is reluctant to initiate further treatment, such as Lyrica, due to concern for side effects. -Continue Celebrex 200mg po daily -Continue Diclofenac topical PRN (5) Renal mass: Patient with RCC s/p right partial nephrectomy performed in 2014. She follows with Dr. Flynn and is scheduled to see him next Thursday. No concerns at this time. (6) Prolonged QT interval: QTC on admitting ECG read as greater than 600 and again 580 on repeat ECG here Reviewed repeat ECG and previous ECGs with Cardiology carbon setter who is reading ECGs. The downslope of her T waves in most leads makes it difficult to see where it ends, but in some leads the T wave is clear and she does not appear to have a truly prolonged QT at this time SHe is asymptomatic and on no meds which could cause prolonged QT Cardiology does not recommend any further workup, but suggested a repeat ECG with her PCP within the next few weeks. (7) DVT prophylaxis: Ppx - SCDs Code - Full per discussion with patient Dispo -stable for dc to home Total Time Total Time Spent Total Time Spent (In Minutes): >30 min Total Time Includes: Examination of the Patient, Discharge Planning and Medication Reconciliation Discharge Plan Discharge Items Patient Disposition: Home - Self-Care Reason For Visit: DIVERTICULITIS,SEPSIS Discharge Diagnosis: Acute diverticulitis Condition on Discharge: Good Activity: Resume your previous activity Bathing: No limitations Driving/Machine Use: No limitations Non-emergency contact: Primary Care Provider Call non-emergency contact if: you have any medication questions, your symptoms worsen, your pain is not controlled, your pain is worsening, your pain is unusual for you, your pain is concerning for you, you have a fever and your temperature is above 101 Follow-up/Referrals: Nela Zhang MD [Primary Care Provider] - (Please follow up with your PCP within 1-2 weeks.) Diet: Low Fiber Diet Comment: low fiber x 2 weeks then increase gradually to a high fiber diet. Addtl Attending Provider Instructions: Please finish out the antibiotics as prescribed. Pending Studies at Discharge: No Stand-Alone Forms: Call Back Authorization, [facility] Medications and DC Order Prescriptions: New acetaminophen [Mapap (acetaminophen)] 325 mg Tablet 650 mg PO Q4H PRN (Reason: pain) Qty: 30 RF: 0 amoxicillin-pot clavulanate [Augmentin] 875-125 mg tablet 1 tab PO BID Qty: 16 RF: 0 Continued cetirizine [Zyrtec] 10 mg Tablet 10 mg PO DAILY PRN (Reason: Allergy Symptoms) RF: 0 cyanocobalamin (vitamin B-12) [Vitamin B-12] 1,000 mcg Tablet 1,000 mcg PO DAILY RF: 0 esomeprazole magnesium [Nexium] 20 mg Capsule,Delayed Release(Dr/Ec) 20 mg PO QAM RF: 0 diclofenac sodium 1 % Gel 1 dose TOPICAL QID PRN (Reason: Pain) RF: 0 cholecalciferol (vitamin D3) [Vitamin D3] 2,000 unit Capsule 2,000 unit PO QAM RF: 0 niacin 100 mg Tablet 100 mg PO DAILY RF: 0 celecoxib [Celebrex] 200 mg Capsule 200 mg PO DAILY PRN (Reason: Pain) RF: 0 Discharge Orders: Discharge Order (Routine); Ordered 02/10/19 Ordered By: Justine Ibarra Admission Data Admit Date/Time: 02/08/19 20:02 Attending Provider: Justine Ibarra Admit Provider: Susannah Dorsey Primary Care Provider: Nela Zhang Other Providers: Susannah Dorsey
== END 2019-02-10 16:41 | disposition home or self-care (01) | DRG 392 ==
LOC: ED 15:58 → 3W 20:02 → SUATTDRO 20:02 → 3W 20:52